=== PATIENT | female | born 1940 | race Caucasian/White ===

== ENCOUNTER 2024-06-15 12:23 | Inpatient (IN) | payer OTHER, SELFPAY ==
[2024-06-15] VITALS (9 sets, daily range): BP systolic 123–150; BP diastolic 68–85; BMI 20.7; BMI 19.7
[2024-06-15 09:06] LABS: COVID-19 Antigen Negative (Negative)
[2024-06-15 09:08] LABS: ALT (SGPT) 15 U/L (0-35); AST (SGOT) 23 U/L (14-36); Alkaline Phosphatase 70 U/L (38-126); Blood Urea Nitrogen 15 mg/dl (7-17); Calcium 10.8 mg/dl (8.4-10.2); Carbon Dioxide 24 mmol/L (22-30); Chloride 107 mmol/L (98-107); Estimated Creatinine Clearance 39 ml/min; Glucose 83 mg/dl (70-99); Potassium 4.5 mmol/L (3.5-5.1); Sodium 141 mmol/L (135-145); Total Bilirubin 0.7 mg/dl (0.2-1.3); Total Protein 7.3 g/dl (6.3-8.2); eGFR > 60.00
[2024-06-15 10:14] LABS: % Basophils 0.7 % (0-2); % Eosinophils 0.5 % (0-6); % Immature Granulocytes 2.2 % (0-0.5); % Lymphocytes 13.5 % (20.5-51.1); % Neutrophils 77.1 % (42.2-75.2); Absolute Basophils 0.1 10^3/uL (0-0.2); Absolute Eosinophils 0.1 10^3/uL (0-0.7); Absolute Immature Granulocytes 0.3 10^3/uL (0-0.05); Absolute Lymphocytes 2.1 10^3/uL (1.2-3.4); Absolute Monocytes 0.9 10^3/uL (0.1-0.6); Absolute Neutrophils 11.8 10^3/uL (1.4-6.5); Hematocrit 43.9 % (37.0-47.0); Hemoglobin 14.4 g/dL (12.0-16.0); Mean Corp Hgb Conc. 32.8 g/dL (33.0-37.0); Mean Corpuscular Volume 88.3 fL (81.0-99.0); Mean Platelet Volume 8.6 fL (7.4-10.4); Nucleated Red Blood Cells % 0 %; Platelet Count 502 10^3/uL (130-400); Red Blood Cell Count 4.97 10^6/uL (4.20-5.40); Red Cell Dist. Width 14.2 % (11.5-14.5); White Blood Cell Count 15.2 10^3/uL (4.8-10.8)
--- NOTE | 2024-06-15 10:20 | ED.GENMED ---
History of Present Illness
General
Chief Complaint: Breathing Problem
Source: patient and family (Son and [id number])
Time Seen by Provider: 06/15/24 09:56
History of Present Illness
History of Present Illness:
84-year-old female presents to the emergency room complaining of shortness of breath, increased cough and sputum production, shaking chills. Patient has a history of bronchiectasis. She is using nebulizers and was recently started on a tobramycin
breathing treatment. Patient has not been a dose time before but typically receives treatment at [facility]. They decided to 'go somewhere better'. No known fever. Patient's last hospitalization was about a year ago.
Phy Exam
Physical Exam
Physical Exam:
General: Awake, Alert, Oriented X3. Appears chronically ill but is not in acute respiratory distress
Vitals: Hypoxic on room air
Head: Atraumatic
Eyes: Pupils equal, EOMI
Throat: Airway intact, no exudates
Neck: Trachea midline
Lungs: Decreased breath sounds bilateral, few crackles bilateral bases
Heart: Regular rate, no murmurs
Abd: Soft, Nontender, No pulsatile mass
Neuro: Nonfocal
Skin: Warm, dry, no rash
Extremities: pulses equal b/l, no edema
Scores
Heart Failure Risk
Heart Failure Risk Score: Not Applicable
Course
Orders/Labs/Results
Orders:
Orders
06/15/24 08:27
Electrocardiogram (*1) Urgent
Reason for Study: Shortness of Breath
EKG- Treatment ONCE
CXR2 [CR Chest - 2 Views ] Urgent
Comment:
Reason For Exam: sob
06/15/24 08:40
COVID-19 Antigen Urgent
Source: Nasal Swab
Comprehensive Metabolic Panel Urgent
Influenza A+B Rapid Molecular Urgent
MARTHA Source: Nasal Swab
Specimen Description:
06/15/24 Lunch
Regular
At Your Request: Limited Participation
06/15/24 10:04
Complete Blood Count/With Diff Urgent
06/15/24 10:14
Ipratropium/Albuterol Sulfate [Duoneb] 3 ml INH R NOW STA
06/15/24 11:31
Piperacillin/Tazo 3.375 Gram [Zosyn] 3.375 gram in 50 ml IV NOW
06/15/24 11:38
Sputum Culture [Respiratory Culture/Gram Stain] Urgent
MARTHA Source: Sputum
Specimen Description:
Date Specimen was Collected: 06/15/24
Time Specimen was Collected: 11:13
06/15/24 12:00
Blood Culture Q30M
MARTHA Source: Blood/Venous
Specimen Description:
06/15/24 12:06
Admit/Transfer Patient As Directed
Co-Sign Provider:
Level of Care: Inpatient admission
Assign to:: Telemetry
Physician / Group: Brenda/hospitalist
Diagnosis: hypoxia, ?CAP
Reason for Telemetry: Arrhythmia
Date to Stop Telemetry: 06/18/24
Time to Stop Telemetry: 11:00
Reason for Hospitalization: hypoxia, ?CAP
Expected length of stay greater than two midnights?: Yes
ELOS- Estimated Length of Stay in days: 3
I certify the patient meets the requirements for IP care: Yes
PULMONARY CONSULT Routine
Consulting Provider: Collin Whipple
Was physician already notified: Yes
PRN Pain Medication Management As Directed
May give lesser potent ordered pain med per pt: Yes
preference::
Protocol:: Medication orders for pain may be administered in a
manner that supports deferring to patient preference
when the pt is:
- Requesting an ordered lesser potent pain medication.
Least to most potent pain medications are defined
as: acetaminophen < NSAID < tramadol < opioids
(morphine, oxycodone, hydromorphone).
- Requesting a lesser dose of the same medication IF
ORDERED.
- Requesting a less intrusive route of administration
if both routes are prescribed by the provider (PO <
IV).
06/15/24 12:07
Code Status As Directed
Resuscitation Status: Full Code
06/15/24 12:17
Respiratory Syncytial Virus Routine
MARTHA Source: Nasal Swab
Specimen Description:
Date Specimen was Collected: 06/15/24
Time Specimen was Collected: 12:08
06/15/24 12:30
Blood Culture Q30M
MARTHA Source: Blood/Venous
Specimen Description:
06/15/24 14:41
Bisacodyl [Dulcolax] 10 mg RECTAL [id number] PRN
Docusate W/Senna [Senokot-S] 1 tablet PO BIDPRN PRN
Ipratropium/Albuterol Sulfate [Duoneb] 3 ml INH R Q4HPRN PRN
Polyethylene Glycol Powder [Miralax] 17 grams PO DAILYPRN PRN
06/15/24 14:41
Activity As Directed
Activity Level: As Tolerated
Vital Signs As Directed
Frequency: Per unit guidelines
DX Deep Vein Thrombosis Video Routine
06/15/24 16:00
Ipratropium/Albuterol Sulfate [Duoneb] 3 ml INH R QID
06/15/24 16:17
Procalcitonin Routine
PCT Algorithmm Indication: Respiratory
06/15/24 16:18
MRSA Screen Routine
MARTHA Source: Nose
Specimen Description:
06/15/24 18:00
Enoxaparin Sodium [Lovenox] 40 mg SC QPM
Piperacillin/Tazo 3.375 Gram [Zosyn] 3.375 gram in 50 ml IV Q6H
06/16/24 06:00
Basic Metabolic Panel IN AM
Complete Blood Count/With Diff IN AM
Magnesium IN AM
06/18/24 11:00
DC Protocol for Telemetry ONCE
Abnormal Lab Results
06/15/24 06/15/24
08:40 10:04
WBC 15.2 H 10^3/uL
(4.8-10.8)
MCHC 32.8 L g/dL
(33.0-37.0)
Plt Count 502 H 10^3/uL
(130-400)
Abs Immat Gran (auto) 0.3 H 10^3/uL
(0-0.05)
Absolute Neuts (auto) 11.8 H 10^3/uL
(1.4-6.5)
Absolute Monos (auto) 0.9 H 10^3/uL
(0.1-0.6)
Immature Gran % 2.2 H %
(0-0.5)
Neutrophils % 77.1 H %
(42.2-75.2)
Lymphocytes % 13.5 L %
(20.5-51.1)
Calcium 10.8 H mg/dl
(8.4-10.2)
06/15/24 10:04
06/15/24 08:40
Vital Signs
Initial and Last Documented VS:
Initial Vital Signs
Temp Pulse Resp BP Pulse Ox
98.8 F 104 16 150/84 92
06/15/24 08:23 06/15/24 08:23 06/15/24 08:23 06/15/24 08:23 06/15/24 08:23
Last Documented Vital Signs
Temp Pulse Resp BP Pulse Ox
97.8 F 102 18 145/81 91
06/15/24 16:24 06/15/24 16:24 06/15/24 16:24 06/15/24 16:24 06/15/24 16:24
MDM/Problems Addressed
Differential Diagnosis Includes:
Pneumonia, bronchiectasis, acute bronchitis
MDM/Problems Addressed:
Patient presents with increasing shortness of breath, productive cough. She has a history of bronchiectasis. We do not have any records on this patient but she reports that she has a positive sputum culture for Pseudomonas in the past. Therefore
Zosyn ordered. Patient will require hospitalization given her comorbidities and acute decompensation
*Radiology
Radiology exam reviewed: preliminary read by ED provider (No distinct infiltrate)
*Pulse Oximetry
Patient hypoxic: yes
*EKG
Interpreted by ED Provider?: Yes
Interpretation: abnormal
Heart Rate: 103
Rate: tachycardiac
Rhythm: sinus tachycardia
Christoval: normal axis
Interval: normal interval
QRS Pattern: normal QRS
Ischemia: non-specific ST changes
*[employer] Interpretation
Rate: tachycardiac
Heart Rate: 103
Rhythm: sinus tachycardia
*Critical Care Note
Total Time (30-74mins, 75-104mins- exclusive of procedures): Not Applicable
ED Attending Note
-
Portions of this chart may have been created with voice recognition software.� Occasional wrong word or��sound alike� substitutions may have occurred due to the inherent limitations of voice recognition software.
Discharge Plan
Departure
Patient Disposition: Admit
Date of Disposition: 06/15/24
Time of Disposition: 11:32
Admit to: Med/Surg
Presentation/result/management discussed w/ accepting MD/DO: Hospitalist
Discharge Problem:
Acute exacerbation of bronchiectasis, Hypoxia
Interventions
Interventions:
*Risk Screen - Suicide Last Done: 06/15/24 08:23
*General Assessment Last Done: 06/15/24 09:04
*Neglect/Abuse Screening Last Done: 06/15/24 08:23
ED- Fall Risk Assessment Last Done: 06/15/24 09:04
*ED COVID-19 Vaccine History Last Done: 06/15/24 09:04
*Nursing Disposition Last Done: 06/15/24 14:34
ED- Cardiac Assessment Last Done: 06/15/24 09:04
ED- Pulmonary Assessment Last Done: 06/15/24 09:04
Discharge Date and Time
Discharge Date/Time: 06/15/24 14:35
[2024-06-15] MEDS: DUONEB 3 ML INH ×2 (10:25→21:44)
[2024-06-15] MEDS: ZOSYN 50 IV (11:35)
--- NOTE | 2024-06-15 11:47 | HPS.HSE ---
Family Physician
-
Family Physician: Serge Agarwal
Chief Complaint
-
SOB, cough
History of Present Illness
HPI: 84-year-old female with PMH bronchiectasis; p/w shortness of breath, increased cough and sputum production, shaking/chills and hypoxia.
She was using nebulizers and was recently started on tobramycin breathing treatment.
This is her first time at , she usually goes to [facility]. Patient's last hospitalization was about a year ago.
Denies to other symptoms.
Medical History
Past Medical History
Past Medical History: Reports Other
Additional Past Medical History:
bronchiectasis
Past Surgical History: Reports None
Social History
Tobacco: Non-smoker
Alcohol: None
Living: Prison
Family History
Family History: Not pertinent
Allergies / Home Medications
Allergies reflects when Allergies were last updated in [facility].
Home Medications with original date entered in [facility]
Allergy/Medication List:
Medications on admission are unable to be verified or confirmed at this time.
Review of Systems
-
Respiratory: Reports See HPI and Cough
Physical Exam
Vital Signs
Vital Signs
Temp Pulse Resp BP Pulse Ox
37.1 C 111 22 129/85 95
06/15/24 08:23 06/15/24 11:00 06/15/24 11:00 06/15/24 11:00 06/15/24 11:00
Physical Exam
General: Well Developed, Well Nourished, No Apparent Distress, Comfortable and Conversant
HEENT: NormoCephalic, Moist mucous membranes and Atraumatic
Respiratory: Clear and Non Labored Respirations; No Wheezes or Accessory Resp Muscle Use
Cardiac: S1/S2 and Regular Rhythm; No Murmur or Rub
GI: Soft, Non Tender, Non Distended and Normal Bowel Sounds; No Organomegaly
Rectal: Deferred by Provider
Musculoskeletal: No Clubbing, No Cyanosis and No Edema
Skin: No Rash
Neuro: Awake and Alert
Psych: Intact Judgment/Insight
Laboratory Results
-
06/15/24 10:04
06/15/24 08:40
Laboratory Results
Total Bilirubin 0.7 mg/dl (0.2-1.3) 06/15/24 08:40
AST 23 U/L (14-36) 06/15/24 08:40
ALT 15 U/L (0-35) 06/15/24 08:40
Alkaline Phosphatase 70 U/L (38-126) 06/15/24 08:40
Data Reviewed
-
Diagnostic Radiology: Image Personally Visualized and interpreted and Report Reviewed by me
Lab Data: Labs Reviewed by me
Impression/Plan
-
HPI: 84-year-old female with PMH bronchiectasis; p/w shortness of breath, increased cough and sputum production, shaking/chills and hypoxia.
She was using nebulizers and was recently started on tobramycin breathing treatment.
This is her first time at , she usually goes to [facility]. Patient's last hospitalization was about a year ago.
Denies to other symptoms.
A/P:
# Likely sepsis present on admission, secondary to community-acquired pneumonia
# Acute hypoxic respiratory insufficiency
# History of bronchiectasis
Patient placed on 2L NC, wean as tolerated, patient not on home O2
CXR: suspect acute on chronic bibasilar infectious/inflammatory bronchiolitis. Cannot rule out component of underlying chronic interstitial lung disease.
Check procalcitonin
Check blood culture
Check RSV, MRSA screen
Flu/COVID-negative
Status post Zosyn in ER, continue
ID consult
DVT ppx: Lovenox SQ
FC
--- NOTE | 2024-06-15 13:07 | CON.PUL ---
Consultation
Consultation Request
Date/Time Consultation Requested: 06/15/2024 - 120
Date/Time Consultation Performed: 06/15/2024 - 0
Requesting Provider: Dr. Gutierrez
Performing Provider: Dr. Whipple
Reason for Consultation: SOB/cough/history of bronchiectasis
Medical History
-
Chief Complaint: Shortness of breath/cough/fevers
History of Present Illness:
84-year-old female non-smoker with a reported past medical history of bronchiectasis/chronic bronchitis who presents with shortness of breath and worsening cough. She says that she woke up with difficulty breathing and this worsened with activity.
Also having shaking chills with worsening sputum production. She reports that she was recently started on tobramycin nebulizers for history of Pseudomonas on sputum culture. She usually goes to [facility]. On arrival here to the ER
she was saturating 92% on RA, she was afebrile to 98.8 �F, pulse rate 104, breathing at 16 breaths/min, and BP 150/84. Of note, she does not use home oxygen. Labs showed WBC 15.2, Hb 14.4, platelets 502, calcium 10.8, and COVID-19 antigen
negative. Flu A/B swab is negative and sputum culture collected. RSV swab also negative. CXR shows a suspected acute on chronic bibasilar infectious/inflammatory bronchiolitis. Cannot rule out underlying ILD. She was given Zosyn and DuoNebs in
the ER and admitted to telemetry under the hospitalist. Pulmonary service now consulted for additional management/recommendations.
When I saw the patient she was resting in bed, on 2 L/min, breathing comfortably, saying she feels better. She says her bronchiectasis was diagnosed 14 years ago after she had a cold and then had significant cough or shortness of breath. She
follows with [employer] team member, Dr. Chandan Fletcher with [facility]. She has been on tobramycin nebs in 2 weeks cycles for several months due to a history of Pseudomonas. Has also been on chronic prednisone taken 20 mg every other day also for
several months, and she took her last pill yesterday. She usually takes Arnuity 200mcg + Anoro for her bronchiectasis, and she believes she has a history of COPD. Also takes prn albuterol, and a budesonide sinus rinse. She denies having recurrent
infections or having a history of immunoglobulin deficiency. She may feel short of breath randomly during the day and that is when she takes her albuterol. She denies any recent sick contacts, no fevers prior to admission, and no recent travel.
This morning she felt lightheaded and short of breath and that is what led her to coming into the hospital.
PMHx: Reported history of bronchiectasis/COPD, history of bronchiolitis/chronic bronchitis
PSHx: Appendectomy, ear surgery
Past Medical History
Past Medical History: Other (Above as per HPI)
Past Surgical History: Other (Above as per HPI)
Social History
Tobacco: Non-smoker
Alcohol: None
Drug: None
Living: Shelter
Family History
Family History: Reviewed & Not Pertinent
Allergies / Home Medications
Allergies
Allergy/AdvReac Type Severity Reaction Status Date / Time
peanut Allergy Unknown Verified 06/15/24 08:26
Home Medications
�Medication �Instructions �Recorded �Confirmed �Last Taken �Type
albuterol sulfate 2.5 mg/3 mL 2.5 mg inhalation R Q6HPRN PRN sob 06/15/24 06/15/24 Unknown History
(0.083 %) solution for nebulization
aspirin 81 mg tablet,delayed 81 mg PO DAILY 06/15/24 06/15/24 06/14/24 History
release
budesonide 0.5 mg/2 mL suspension 0.5 mg inhalation R BID 06/15/24 06/15/24 06/14/24 History
for nebulization
calcium 500 mg (as 1 tab PO DAILY 06/15/24 06/15/24 06/14/24 History
carbonate)-vitamin D3 10 mcg (400
unit) tablet (Calcium 500 + D)
fenofibrate nanocrystallized 145 145 mg PO DAILY 06/15/24 06/15/24 06/14/24 History
mg tablet (Tricor)
fluticasone furoate 200 1 inh inhalation R DAILY 06/15/24 06/15/24 06/14/24 History
mcg/actuation blister powder for
inhalation (Arnuity Ellipta)
hydrochlorothiazide 25 mg tablet 25 mg PO DAILY 06/15/24 06/15/24 06/14/24 History
pantoprazole 40 mg tablet,delayed 40 mg PO DAILY 06/15/24 06/15/24 06/14/24 History
release (Protonix)
tobramycin 300 mg/5 mL in 0.225 % 5 ml inhalation UD 06/15/24 06/15/24 06/15/24 History
sodium chloride for nebulization
umeclidinium 62.5 mcg-vilanterol 1 inh inhalation R DAILY 06/15/24 06/15/24 06/14/24 History
25 mcg/actuation powdr for
inhalation (Anoro Ellipta)
Review of Systems
-
History Source: Patient
All other systems: Negative unless noted
Vitals / Labs / Diagnostic Testing
Vital Signs
Temp Pulse Resp BP Pulse Ox
98.8 F 99 25 124/68 96
06/15/24 08:23 06/15/24 13:15 06/15/24 13:00 06/15/24 13:00 06/15/24 13:15
Lab Data
06/15/24 10:04
06/15/24 08:40
Microbiology
06/15/24 11:38 Sputum Gram Stain - Preliminary
06/15/24 12:17 Nasal Swab Respiratory Syncytial Virus Ag - Final
Negative for Respiratory Syncytial Virus.
A false negative result may be obtained with a specimen
collected early in the acute phase. If symptoms persist, a
new specimen should be tested.
06/15/24 08:40 Nasal Swab Influenza Types A & B (ARNAUD) - Final
Negative for Influenza A & B, NAAT
Negative results must be combined with clinical observations
and patient history.
Nucleic Acid Amplification test (NAAT)performed on the
Met[employer] NOW platform.
Diagnostic Testing:
Physical Exam
-
HEENT: Normocephalic and Anicteric
Cardiovascular: S1/S2 and Peripheral Edema (negative)
Respiratory: Wheeze (Bergen upon expiration in the mid to upper lung mcpherson bilaterally), Rales (Bibasilar), Rhonchi (negative) and Non-Labored Respirations
GI: Soft, Non Distended, Non Tender and Normal Bowel Sounds
Neurology: AO x 3 and Tremors (negative)
Skin: Warm and Dry
General: Respiratory Distress (negative), Comfortable, Fever (negative) and Chills (negative)
Assessment
-
Assessment: 84-year-old female non-smoker with a reported past medical history of bronchiectasis/chronic bronchitis who presents with shortness of breath and worsening cough. She says that she woke up with difficulty breathing and this worsened
with activity. Also having shaking chills with worsening sputum production. She reports that she was recently started on tobramycin nebulizers for history of Pseudomonas on sputum culture. She usually goes to [facility]. On arrival
here to the ER she was saturating 92% on RA, she was afebrile to 98.8 �F, pulse rate 104, breathing at 16 breaths/min, and BP 150/84. Of note, she does not use home oxygen. Labs showed WBC 15.2, Hb 14.4, platelets 502, calcium 10.8, and COVID-19
antigen negative. Flu A/B swab is negative and sputum culture collected. RSV swab also negative. CXR shows a suspected acute on chronic bibasilar infectious/inflammatory bronchiolitis. Cannot rule out underlying ILD. She was given Zosyn and
DuoNebs in the ER and admitted to telemetry under the hospitalist. Pulmonary service now consulted for additional management/recommendations.
Chronic conditions [employer]: Reported history of bronchiectasis/COPD, history of bronchiolitis/chronic bronchitis, history of chronic prednisone use, history of Pseudomonas aeruginosa requiring chronic tobramycin nebs
Impression:
#Acute respiratory failure with hypoxia not on supplemental oxygen
#COPD exacerbation
#History of bronchiectasis/COPD on Anoro/Arnuity and history of chronic prednisone use (prescribed 20mg every other day for several months, stopped yesterday)
#SOB with worsening cough and sputum production which shaking chills likely due to sepsis from CAP
#History of Pseudomonas on sputum culture (per patient) on tobramycin nebs in 2 weeks cycles for a few months
#Leukocytosis, possibly related to recent prednisone usage prior to arrival
#Thrombocytosis likely reactive
#Hypercalcemia
Plan:
- Continue with broad-spectrum antibiotics (cefepime s/p zosyn) as CXR showed bibasilar interstitial/airspace opacities with suspected pneumonia vs inflammatory bronchiolitis
- Takes Anoro and Arnuity at home --> given her SOB, continue DuoNebs and Pulmicort for now; can resume her inhalers as she gets closer to discharge; continue prn nebulized bronchodilators for breakthrough symptoms
- Given that she is wheezing and has felt marked improvement in past when she takes steroids, I will start a prednisone taper
- Anti-tussants prn
- Airway clearance is ricketts--> start mucinex and acapella; if still having SOB with cough, then will start 3% with vest
- Follow up respiratory Cx
- Check procal and if negative then consider narrowing ABx or giving short course; if procal elevated then would trend to assure we have source control
- Follow up sputum Cx
- Currently I have no prior CT imaging or breathing tests to assess the severity of her bronchiectasis or assess for COPD
- If we can obtain medical records of most recent CT chest and/or any prior PFTs that would be helpful - her lung doctor is Dr. Fletcher at [facility] - I will request this
- She currently is on room air and breathing comfortably, however if dyspnea on exertion does not improve then would recommend CT chest to evaluate the lung parenchyma
- Maintain SpO2 88-95% with supplemental O2 and wean down as tolerated
- If resting SaO2 remains <96% on room air, then check ambulatory pulse oximetry prior to discharge
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 Unfortunately we do not carry this here. I will order [place] for now
- Continue to trend calcium level
- Consider checking PTH and 25-OH Vitamin D level
- Incentive spirometer encouraged q1hr while awake
- Replete electrolytes with K>4, Mg>2
- Trend H/H and transfuse if needed to keep Hb>7g/dL; keep plt>20k, unless there is concern for bleeding then keep plt>50k
- Maintain euglycemia with goal BG >100 and <180
- DVT ppx: LMWH
Pulmonary service will continue to follow along. Following discharge she is recommended to continue following with her Telephone Appointment Clerk at [facility], Dr. Chandan Fletcher.
Data:
CXR 06/15/2024: Suspect acute on chronic bibasilar infectious/inflammatory bronchiolitis. Cannot rule out component of underlying chronic interstitial lung disease.
Total time spent today was 57 minutes for this encounter. Time includes reviewing laboratory test/imaging results, reviewing pertinent medical records, obtaining and reviewing medical history, performing an appropriate exam, ordering medications,
tests and procedures. Time also includes documentation of this encounter, coordinating patient care and communicating with other healthcare professionals. Total time does not include separately billed tests performed on this date of service.
[2024-06-15] MEDS: DUONEB INH ×2 (15:28→15:36)
--- NOTE | 2024-06-15 16:05 | CON.ID ---
Consultation
-
Date/Time Consultation Requested: June 15, 2024 1600
Date/Time Consultation Performed: June 15, 2024 1600
Requesting Provider: Dr. Rosi Gutierrez
Performing Provider: Dr. Cheryl Marques
Reason for Consultation: Pseudomonas pneumonia with hypoxia
Chief Complaint / Past History
Chief Complaint
Difficulty breathing
History of Present Illness
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 She reports she has
bronchiectasis x 14 years. She had bronchoscopy in the past. Her sputum always grew Pseudomonas. She has frequent bronchiectasis flare often treated with steroid taper alone. Approximately 2 months ago she was placed on HEATHER 14 days on, 14 days
off cycle, along with slow steroid taper which she finished yesterday June 14. She was doing well the last couple months while on the HEATHER and steroid. She has chronic cough productive of yellowish sputum without change. Patient noted to be
hypoxic. She was last hospitalized in [place] July 2023 when she had a reaction to one of the antibiotic with significant GI upset, diarrhea and dizziness. She cannot recall which antibiotic she received. She is currently on Zosyn. She still
has shortness of breath. No ill contacts.
Past History
Additional Past Medical History:
Bronchiectasis
Allergy History:
peanut Allergy (Verified 06/15/24 08:26)
Unknown
Medications Reviewed: Yes
Current Antibiotics:
Zosyn D1
Social History
Tobacco: Non-Smoker
Alcohol: None
Drug: None
Living: Alone ([facility])
Family History
Family History: Not Pertinent
Review of Systems
Review of Systems
General: Chills; Negative Fever
HEENT: Negative Sinus Problems, Headache or Pharyngitis
Cardiovascular: Negative Chest Pain
Respiratory: Dyspnea and Cough (chronic)
Gasteroenterology: Negative Nausea, Vomiting or Diarrhea
Genital / Urological: Negative Dysuria or Flank Pain
Endocrine: Weakness
Neurological: Negative Dizziness
All systems: All other systems were reviewed and were negative
Vital Signs
Temp Pulse Resp BP Pulse Ox
98.8 F 95 32 132/75 93
06/15/24 08:23 06/15/24 14:00 06/15/24 14:00 06/15/24 14:00 06/15/24 15:37
Physical Exam
Physical Exam
Eyes: No Conjunctival Hemorrhage and Sclera Anicteric
Cardiovascular: Regular Rate and S1/S2
Pulmonary: Coarse (bibase crackles) and Other (Labored. decreased airway movement)
Gastrointestinal: Soft, Non Tender, Non Distended and Normal Bowel Sounds
Genito-Urinary: Negative CVA Tenderness
Extremities: Negative Edema
Neurological: AO x 3
Lab / Diagnostic Study Results
06/15/24 10:04
06/15/24 08:40
Abs Immat Gran (auto) 0.3 10^3/uL (0-0.05) H 06/15/24 10:04
Absolute Neuts (auto) 11.8 10^3/uL (1.4-6.5) H 06/15/24 10:04
Absolute Lymphs (auto) 2.1 10^3/uL (1.2-3.4) 06/15/24 10:04
Absolute Monos (auto) 0.9 10^3/uL (0.1-0.6) H 06/15/24 10:04
Absolute Basos (auto) 0.1 10^3/uL (0-0.2) 06/15/24 10:04
Immature Gran % 2.2 % (0-0.5) H 06/15/24 10:04
Neutrophils % 77.1 % (42.2-75.2) H 06/15/24 10:04
Lymphocytes % 13.5 % (20.5-51.1) L 06/15/24 10:04
Monocytes % 6.0 % (1.7-9.3) 06/15/24 10:04
Eosinophils % 0.5 % (0-6) 06/15/24 10:04
Basophils % 0.7 % (0-2) 06/15/24 10:04
Microbiology Results
Micro:
06/15/24 11:38 Respiratory Culture - Pending
Sputum Gram Stain - Preliminary
06/15/24 12:17 Respiratory Syncytial Virus Ag - Final
Nasal Swab Negative for Respiratory Syncytial Virus.
A false negative result may be obtained with a specimen
collected early in the acute phase. If symptoms persist, a
new specimen should be tested.
06/15/24 08:40 Influenza Types A & B (ARNAUD) - Final
Nasal Swab Negative for Influenza A & B, NAAT
Negative results must be combined with clinical observations
and patient history.
Nucleic Acid Amplification test (NAAT)performed on the
[employer] platform.
06/15/24 CXR: Suspect acute on chronic bibasilar infectious/inflammatory bronchiolitis.
12/03/2023 Sputum ([facility])
Lower Respiratory Culture Final report Abnormal
Result 1 Pseudomonas aeruginosaModerate growth Abnormal
Result 2 Routine respiratory floraModerate growth
Antimicrobial Susceptibility S = Susceptible; I = Intermediate; R = Resistant P = Positive; N = Negative
MICS are expressed in micrograms per mL
Antibiotic RSLT#1 RSLT#2 RSLT#3 RSLT#4
Amikacin S
Cefepime S
Ceftazidime S
Gentamicin S
Imipenem S
Levofloxacin I
Meropenem S
Piperacillin S
Ticarcillin S
Tobramycin S
Assessment / Plan
# Bronchiectasis exacerbation
# Pneumonia vs Acute on chronic Bronchitis
# Acute hypoxic insufficiency
# Leukocytosis - may be due to recent steroid taper
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
- Patient new to our health system. No imaging to compare to look for acute change.
- Review of [facility] and [facility] labs: Sputums + Pseudomonas aeruginosa 10/22/23 (pansensitive), 11/16/23 (pansensitive), 12/03/23 (intermediate resistant to levofloxacin).
- Follow sputum cx
- Replace Zosyn with cefepime 1g IV q6h.
- Obtain records from 07/2023 [facility].
Care Review
Plan reviewed with: Physician
Total Time Spent with Patient (in minutes): Dr. Whipple
[2024-06-15] MEDS: LOVENOX 40 MG SC (17:22)
[2024-06-15] MEDS: MAXIPIME 1000 MG IV ×2 (17:23→23:19)
[2024-06-15] MEDS: STERILE WATER FOR INJECTION 10 ML IV ×2 (17:23→23:20)
[2024-06-15] MEDS: DELTASONE 40 MG PO (18:03)
[2024-06-15] MEDS: OCEAN, SALINE MIST NASAL ×2 (20:27→20:41)
[2024-06-15] MEDS: OCEAN, SALINE MIST 2 SPRAYS NASAL (21:21)
[2024-06-15] MEDS: PULMICORT 0.5 MG INH (21:44)
[2024-06-15 21:48] LABS: Procalcitonin < 0.05 ng/ml (0.0-0.25)
[2024-06-16] VITALS (9 sets, daily range): BP systolic 120–163; BP diastolic 63–92; PULSE 120; O2SAT 95; BMI 18.9
[2024-06-16] MEDS: STERILE WATER FOR INJECTION 10 ML IV ×3 (05:09→18:43)
[2024-06-16] MEDS: MAXIPIME 1000 MG IV ×3 (05:09→18:43)
[2024-06-16] MEDS: PULMICORT 0.5 MG INH ×2 (07:12→19:15)
[2024-06-16] MEDS: DUONEB 3 ML INH ×4 (07:12→19:15)
[2024-06-16 07:40] LABS: % Basophils 0.3 % (0-2); % Immature Granulocytes 2.1 % (0-0.5); % Lymphocytes 11.1 % (20.5-51.1); % Neutrophils 82.5 % (42.2-75.2); Absolute Immature Granulocytes 0.3 10^3/uL (0-0.05); Absolute Lymphocytes 1.5 10^3/uL (1.2-3.4); Absolute Monocytes 0.6 10^3/uL (0.1-0.6); Absolute Neutrophils 11.3 10^3/uL (1.4-6.5); Hemoglobin 14.6 g/dL (12.0-16.0); Mean Corp Hgb Conc. 32.4 g/dL (33.0-37.0); Mean Corpuscular Hgb 28.3 pg (27.0-31.0); Mean Corpuscular Volume 87.2 fL (81.0-99.0); Mean Platelet Volume 8.5 fL (7.4-10.4); Nucleated Red Blood Cells % 0 %; Platelet Count 515 10^3/uL (130-400); Red Blood Cell Count 5.16 10^6/uL (4.20-5.40); White Blood Cell Count 13.7 10^3/uL (4.8-10.8)
--- NOTE | 2024-06-16 08:11 | W.PN.HOSP.TC ---
Addendum entered and electronically signed by Kaitlin Gutierrez MD 06/16/24 12:39:
I saw and evaluated the patient. I reviewed the resident�s note and agree with findings and plan as documented in the resident�s note.
A/P:
# Acute hypoxic respiratory insufficiency, now felt likely 2/2 progression of chronic bronchiectasis
# History of bronchiectasis
Cont O2 support on 2L NC, wean as tolerated, patient not on home O2
CXR: suspect acute on chronic bibasilar infectious/inflammatory bronchiolitis. Cannot rule out component of underlying chronic interstitial lung disease.
Procalcitonin negative, COVID/Flu/RSV negative
Sputum culture noted Usual Respiratory Felicia
Follow blood culture
Pt was started with empiric Abx Cefepime, cont for now until further directed by ID
DC further empiric steroid due to agitation
ID on board
Pulm on board
DVT ppx: Lovenox SQ
FC
Original Note:
Today's Communication/Plan
-
Hold PO steroids for now for agitation. C/w mucolytics, nebulizers, inhalers. Pending sputum cultures and blood cultures. Will restart home HCTZ.
Assessment / Plan
Assessment / Plan
84 year old female
#Acute hypoxic respiratory failure, possibly secondary to infectious bronchiolitis - Requiring supplemental Oxygen 2L NC w/o hx of oxygen use at home.
- c/w mucinex, antitussives, duonebs/pulmicort w/ albuterol nebs prn.
- Holding steroids for now as patient reports sx of difficulty sleeping, agitation, appetite loss while taking high dose steroids. Will monitor symptoms & wean Oxygen as tolerated.
#Possible Sepsis, secondary to infectious bronchiolitis - On admission, tachycardic, leukocytosis, CXR showing findings suspicious for acute on chronic bibasilar infectious/inflammatory bronchiolitis. Procalcitonin negative. COVID/RSV/Flu negative.
MRSA and Blood Cx pending. On cefepime. ID Following.
#COPD
#History of Bronchiectasis w/ pseudomonas colonization
- mucolytics, antitussives, inhalers/nebs as above.
- Pulm Following.
#Hypertension - pressures elevated in hospital; will restart home HCTZ, hold for SBP <100mHg
Diet - Full
DVT Ppx - SC Lovenox
Code Status - Full Code
Anticipated Discharge: 24 - 48 hours
Subjective/Interval History
-
Shortness of breath improved. had trouble sleeping last night; says this happens when she takes steroids.
Objective Data
-
Labs:
Laboratory Results
06/16/24
07:13
WBC 13.7 H
Hgb 14.6
Hct 45.0
Plt Count 515 H
Sodium Pending
Potassium Pending
Chloride Pending
Carbon Dioxide Pending
BUN Pending
Creatinine Pending
Glucose Pending
Calcium Pending
Vital Signs:
Vital Signs
Temp Pulse Resp BP Pulse Ox
97.7 F 98 18 153/92 96
06/16/24 04:01 06/16/24 07:15 06/16/24 07:15 06/16/24 05:48 06/16/24 05:48
I&O
06/15/24 06/16/24 06/17/24
06:59 06:59 06:59
Intake Total 240 / 240
Balance 240 / 240
Review of Systems
-
History Source: Patient
All other systems: Reviewed and negative
Constitutional: Reports No Symptoms
EENT: Reports No Symptoms Reported
Respiratory: Reports Cough and Trouble Breathing; Denies Wheezing
Cardiac: Reports No Symptoms
Abdomen/GI: Reports No Symptoms
Genitourinary: Reports No Symptoms
Musculoskeletal: Reports No Symptoms
Neuro: Reports No Symptoms
Physical Exam
-
General: Well Developed, Well Nourished, No Apparent Distress and Comfortable
HEENT: Normocephalic, Atraumatic, Moist Mucous Membranes, Anicteric, [place] Conjunctivae, PERRLA, Nose Appears Normal, Ears Appear Normal and Oxygen (2L NC)
Respiratory: Rhonchi and Non Labored Respirations; Negative Wheezes or Rales
Cardiac: Regular Rhythm and S1/S2; Negative Murmur or Rub
GI: Soft, Nontender, Nondistended and Normal Bowel Sounds
Musculoskeletal: No Clubbing, No Cyanosis and No Edema
Neuro: AO x 3 and Nonfocal/Grossly Intact
Psych: Calm
[2024-06-16 08:12] LABS: Blood Urea Nitrogen 16 mg/dl (7-17); Calcium 10.8 mg/dl (8.4-10.2); Carbon Dioxide 22 mmol/L (22-30); Chloride 104 mmol/L (98-107); Estimated Creatinine Clearance 39 ml/min; Glucose 127 mg/dl (70-99); Phosphorus 3.5 mg/dl (2.5-4.5); Potassium 4.5 mmol/L (3.5-5.1); Sodium 139 mmol/L (135-145); eGFR > 60.00
[2024-06-16] MEDS: OCEAN, SALINE MIST 2 SPRAYS NASAL ×3 (09:06→20:57)
[2024-06-16] MEDS: DELTASONE 40 MG PO (09:06)
--- NOTE | 2024-06-16 10:39 | CM ---
CM reviewed chart, patient seen bedside with son and daughter in law, initial assessment completed. Patient resides independently at [facility]. Patient denies use of DME, reports VN in past, unsure of company, denies SNF. Patient
currently on O2, does not wear home O2. Patient PCP Serge Fajardo, [facility] in [place], confirms prescription coverage. Patient remains on IV antibiotics. PT/OT consulted. CM will continue to follow for all discharge planning needs.
Plan; home, watch for VN needs, watch for O2 needs.
--- NOTE | 2024-06-16 12:33 | W.PN.ID1 ---
Date of Service
Date of Service: June 16, 2024
Today's Communication
Continiue cefepime.
Assessment / Plan
# Bronchiectasis exacerbation
# Acute on chronic Bronchitis; procal <0.25
# Acute hypoxic insufficiency
# Leukocytosis - may be due to recent steroid taper
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
- Patient new to our health system. No imaging to compare to look for acute change.
- Review of [facility] and [facility] labs: Sputums + Pseudomonas aeruginosa 10/22/23 (pansensitive), 11/16/23 (pansensitive), 12/03/23 (intermediate resistant to levofloxacin).
- Follow sputum cx
- Continue cefepime 1g IV q6h (d2)
- Awaiting records from 07/2023 [facility].
- Follow oxygen status
Chief Complaint
-: Other (SOB)
Subjective / Review of Systems
SOB same.
Vital Signs / Physical Exam
Vital Signs
Vital Signs
Temp Pulse Resp BP Pulse Ox
97.4 F 106 18 163/63 93
06/16/24 07:40 06/16/24 11:10 06/16/24 11:10 06/16/24 07:40 06/16/24 11:10
Physical Exam
Constitutional: Acutely Ill
Cardiovascular: Regular Rate and S1/S2
Pulmonary: Coarse (bases)
Gastrointestinal: Soft, Non Tender, Non Distended and Normal Bowel Sounds
Extremities: Negative Edema
Neurological: AO x 3
Objective Data
Lab Data
Lab Results
06/16/24 07:13
06/16/24 07:13
Estimated Creat Clear 39 ml/min 06/16/24 07:13
Total Bilirubin 0.7 mg/dl (0.2-1.3) 06/15/24 08:40
AST 23 U/L (14-36) 06/15/24 08:40
ALT 15 U/L (0-35) 06/15/24 08:40
Alkaline Phosphatase 70 U/L (38-126) 06/15/24 08:40
Most recent labs reviewed.
Micro Results:
06/15/24 11:38 Respiratory Culture - Preliminary
Sputum Usual Respiratory Felicia
Gram Stain - Preliminary
06/15/24 21:09 Blood Culture - Pending
Blood/Venous
06/15/24 19:56 Blood Culture - Pending
Blood/Venous
06/15/24 16:18 MRSA Screen - Pending
Nose
06/15/24 12:17 Respiratory Syncytial Virus Ag - Final
Nasal Swab Negative for Respiratory Syncytial Virus.
A false negative result may be obtained with a specimen
collected early in the acute phase. If symptoms persist, a
new specimen should be tested.
06/15/24 08:40 Influenza Types A & B (ARNAUD) - Final
Nasal Swab Negative for Influenza A & B, NAAT
Negative results must be combined with clinical observations
and patient history.
Nucleic Acid Amplification test (NAAT)performed on the
[employer] platform.
06/15/24 CXR: Suspect acute on chronic bibasilar infectious/inflammatory bronchiolitis.
12/03/2023 Sputum ([facility])
Lower Respiratory Culture Final report Abnormal
Result 1 Pseudomonas aeruginosaModerate growth Abnormal
Result 2 Routine respiratory floraModerate growth
Antimicrobial Susceptibility S = Susceptible; I = Intermediate; R = Resistant P = Positive; N = Negative
MICS are expressed in micrograms per mL
Antibiotic RSLT#1 RSLT#2 RSLT#3 RSLT#4
Amikacin S
Cefepime S
Ceftazidime S
Gentamicin S
Imipenem S
Levofloxacin I
Meropenem S
Piperacillin S
Ticarcillin S
Tobramycin S
[2024-06-16] MEDS: ORETIC 25 MG PO (12:41)
--- NOTE | 2024-06-16 13:04 | W.PN.PUL3 ---
Today's Communication / Plan
-
Continue nebulizer
cont. Secretion clearance interventions
prednisone DC 06/16/2024 adverse effects
Cont. ABX per ID, wait for final cultures
PT/OT as able.
Hypercalcemia per primary team
Will follow
Assessment
-
Assessment: 84-year-old female non-smoker with a reported past medical history of bronchiectasis/chronic bronchitis who presents with shortness of breath and worsening cough. She says that she woke up with difficulty breathing and this worsened
with activity. Also having shaking chills with worsening sputum production. She reports that she was recently started on tobramycin nebulizers for history of Pseudomonas on sputum culture. She usually [facility]. On arrival
here to the ER she was saturating 92% on RA, she was afebrile to 98.8 �F, pulse rate 104, breathing at 16 breaths/min, and BP 150/84. Of note, she does not use home oxygen. Labs showed WBC 15.2, Hb 14.4, platelets 502, calcium 10.8, and COVID-19
antigen negative. Flu A/B swab is negative and sputum culture collected. RSV swab also negative. CXR shows a suspected acute on chronic bibasilar infectious/inflammatory bronchiolitis. Cannot rule out underlying ILD. She was given Zosyn and
DuoNebs in the ER and admitted to telemetry under the hospitalist. Pulmonary service now consulted for additional management/recommendations.
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
Impression:
#Acute respiratory failure with hypoxia not on supplemental oxygen
#COPD exacerbation
#History of bronchiectasis/COPD on Anoro/Arnuity and history of chronic prednisone use (prescribed 20mg every other day for several months, stopped yesterday)
#SOB with worsening cough and sputum production which shaking chills likely due to sepsis from CAP
#History of Pseudomonas on sputum culture (per patient) on tobramycin nebs in 2 weeks cycles for a few months
#Leukocytosis, possibly related to recent prednisone usage prior to arrival
#Thrombocytosis likely reactive
#Hypercalcemia
Plan:
- Continue with broad-spectrum antibiotics (cefepime s/p zosyn) as CXR showed bibasilar interstitial/airspace opacities with suspected pneumonia vs inflammatory bronchiolitis
- Takes Anoro and Arnuity at home --> given her SOB, continue DuoNebs and Pulmicort for now; can resume her inhalers as she gets closer to discharge; continue prn nebulized bronchodilators for breakthrough symptoms
- Prednisone DC- 06/16/2024 due to adverse effects.
- Anti-tussants prn
- Airway clearance is ricketts--> continue mucinex and acapella; if still having SOB with cough, then will start 3% with vest
- Incentive spirometer encouraged q1hr while awake
- Follow up respiratory Cx- negative so far- follow for now.
- Covid/flu negative.
- afebrile/leukocytosis improved, procalcitonin negative.
- Defer ABX to ID, cultures from outpx noted, mostly pansensitive pseudomonas.
- Currently I have no prior CT imaging or breathing tests to assess the severity of her bronchiectasis or assess for COPD
- If we can obtain medical records of most recent CT chest and/or any prior PFTs that would be helpful - her lung doctor is Dr. Fletcher at [facility] - Requested and pending.
- She currently is on room air and breathing comfortably, however if dyspnea on exertion does not improve then would recommend CT chest to evaluate the lung parenchyma.
- Maintain SpO2 88-95% with supplemental O2 and wean down as tolerated- on 3L, new for her.
- If resting SaO2 remains <96% on room air, then check ambulatory pulse oximetry prior to discharge
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 Unfortunately we do not carry this here. I will order [employer] [place] for now
-Wt loss- pt states that she has lost 20-30lb since November- lack of appetite. ?pulmonary Cachexia
consulted PT?OT,
muscle mass loss can also be contributing to her symptoms.
- DVT ppx: LMWH
Pulmonary service will continue to follow along. Following discharge she is recommended to continue following with her [employer] at [facility], Dr. Chandan Fletcher.
Data:
CXR 06/15/2024: Suspect acute on chronic bibasilar infectious/inflammatory bronchiolitis. Cannot rule out component of underlying chronic interstitial lung disease.
Subjective Data
-
Date of Service:
Date of Service: June 16, 2024
Chief Complaint: Pulmonary Follow Up (Hypoxemic respiratory failure/COPD exacerbation)
Review of Systems
General: Fever (n)
Cardiopulmonary: Dyspnea, Dyspnea on Exertion and Cough
GI: Abdominal Pain (n)
Neuro: Headache (n)
Objective Data
Data Reviewed
Vital Signs / I&O / Oxygen:
Vital Signs
Temp Pulse Resp BP Pulse Ox
97.3 F 115 18 134/69 93
06/16/24 11:00 06/16/24 12:41 06/16/24 11:10 06/16/24 12:41 06/16/24 11:10
Intake and Output
06/15/24 06/16/24 06/17/24
06:59 06:59 06:59
Intake Total 240 / 240
Balance 240 / 240
SaO2 93
Nasal Cannula flow liters per 2
minute
Labs/Micro/Reports
Lab Data
06/16/24 07:13
06/16/24 07:13
Microbiology
06/15/24 11:38 Sputum Respiratory Culture - Preliminary
Usual Respiratory Felicia
06/15/24 11:38 Sputum Gram Stain - Preliminary
06/15/24 12:17 Nasal Swab Respiratory Syncytial Virus Ag - Final
Negative for Respiratory Syncytial Virus.
A false negative result may be obtained with a specimen
collected early in the acute phase. If symptoms persist, a
new specimen should be tested.
06/15/24 08:40 Nasal Swab Influenza Types A & B (ARNAUD) - Final
Negative for Influenza A & B, NAAT
Negative results must be combined with clinical observations
and patient history.
Nucleic Acid Amplification test (NAAT)performed on the
[employer] platform.
[2024-06-16] MEDS: LOVENOX 40 MG SC (18:42)
[2024-06-16] MEDS: OCEAN, SALINE MIST NASAL (19:27)
[2024-06-17] VITALS (8 sets, daily range): BP systolic 136–164; BP diastolic 71–97; PULSE 95; O2SAT 96
[2024-06-17] MEDS: TYLENOL 650 MG PO ×5 (00:28→23:04)
[2024-06-17] MEDS: MAXIPIME 1000 MG IV ×5 (00:29→23:05)
[2024-06-17] MEDS: STERILE WATER FOR INJECTION 10 ML IV ×5 (00:29→23:05)
--- NOTE | 2024-06-17 06:16 | W.PN.HOSP.TC ---
Addendum entered and electronically signed by Celine Loera MD 06/17/24 15:45:
I saw and evaluated the patient independently. I reviewed the resident�s note and agree with findings and plan as documented by Dr. Lynn.
GENERAL: well developed, well nourished, female in no apparent distress
HEENT: NC/AT
HEART: regular rate and rhythm, +S1, +S2
LUNGS: clear to auscultation bilaterally
ABDOM: soft, nontender, nondistended, + bowel sounds
EXT: no cyanosis, clubbing, or edema
NEUROLOGIC: grossly intact
Acute hypoxic respiratory failure, possibly secondary to infectious bronchiolitis - Requiring supplemental Oxygen 2L NC w/o hx of oxygen use at home--now on room air-- c/w mucinex, antitussives, duonebs/pulmicort w/ albuterol nebs prn--holding
steroids
Possible Sepsis, secondary to infectious bronchiolitis - On admission, tachycardic, leukocytosis, CXR showing findings suspicious for acute on chronic bibasilar infectious/inflammatory bronchiolitis. Procalcitonin negative. COVID/RSV/Flu negative---
MRSA and Blood Cx negative-- On cefepime. ID Following--return to inhaled tobramycin at d/c
Hypercalcemia - Elevated since admission, iPTH WNL--will need further outpt w/u--consider renal or endo consults as outpt--? due to HCTZ
Thrombocytosis - reactive vs. hemoconcentration. Will continue to monitor.
COPD/History of Bronchiectasis w/ pseudomonas colonization- mucolytics, antitussives, inhalers/nebs as above-- Pulm Following.
Essential Hypertension - pressures elevated in hospital; will restart home HCTZ, hold for SBP <100mHg
DVT Proph - SC Lovenox
Code Status - Full Code
hopeful d/c tomorrow
Original Note:
Today's Communication/Plan
-
Pending blood/sputum cx. Continue to wean oxygen as tolerated. Holding prednisone for now.
Assessment / Plan
Assessment / Plan
84 year old female
#Acute hypoxic respiratory failure, possibly secondary to infectious bronchiolitis - Requiring supplemental Oxygen 2L NC w/o hx of oxygen use at home.
- c/w mucinex, antitussives, duonebs/pulmicort w/ albuterol nebs prn.
- Holding steroids for now as patient reports sx of difficulty sleeping, agitation, appetite loss while taking high dose steroids.
- Will monitor symptoms & wean Oxygen as tolerated for saturations >88%
#Possible Sepsis, secondary to infectious bronchiolitis - On admission, tachycardic, leukocytosis, CXR showing findings suspicious for acute on chronic bibasilar infectious/inflammatory bronchiolitis. Procalcitonin negative. COVID/RSV/Flu negative.
- MRSA and Blood Cx pending. On cefepime. ID Following.
#Hypercalcemia - Elevated since admission, will check a PTH level and monitor.
#Thrombocytosis - reactive vs. hemoconcentration. Will continue to monitor.
#COPD
#History of Bronchiectasis w/ pseudomonas colonization
- mucolytics, antitussives, inhalers/nebs as above.
- Pulm Following.
#Hypertension - pressures elevated in hospital; will restart home HCTZ, hold for SBP <100mHg
Diet - Full
DVT Ppx - SC Lovenox
Code Status - Full Code
Anticipated Discharge: Within 24 hours
Subjective/Interval History
-
Feeling well this morning. No new fevers or chills. Shortness of breath and cough much improved.
Objective Data
-
Labs:
Laboratory Results
06/17/24
06:00
WBC Pending
Hgb Pending
Hct Pending
Plt Count Pending
Sodium Pending
Potassium Pending
Chloride Pending
Carbon Dioxide Pending
BUN Pending
Creatinine Pending
Glucose Pending
Calcium Pending
Total Bilirubin Pending
AST Pending
ALT Pending
Alkaline Phosphatase Pending
Vital Signs:
Vital Signs
Temp Pulse Resp BP Pulse Ox
97.6 F 108 26 138/73 98
06/17/24 03:00 06/17/24 03:00 06/17/24 03:00 06/17/24 03:00 06/17/24 03:00
I&O
06/15/24 06/16/24 06/17/24
06:59 06:59 06:59
Intake Total 240 / 240 480 / 480
Balance 240 / 240 480 / 480
Review of Systems
-
History Source: Patient
All other systems: Reviewed and negative
Constitutional: Reports No Symptoms
EENT: Reports No Symptoms Reported
Respiratory: Reports Trouble Breathing; Denies Cough, Wheezing or Pleurisy
Cardiac: Reports No Symptoms
Abdomen/GI: Reports No Symptoms
Genitourinary: Reports No Symptoms
Musculoskeletal: Reports No Symptoms
Neuro: Reports No Symptoms
Physical Exam
-
General: Well Developed, Well Nourished, No Apparent Distress and Comfortable
HEENT: Normocephalic, Atraumatic, Moist Mucous Membranes, Anicteric, [place] Conjunctivae, PERRLA, Nose Appears Normal, Ears Appear Normal and Oxygen
Respiratory: Clear to Auscultation and Non Labored Respirations; Negative Wheezes, Rales or Rhonchi
Cardiac: Regular Rhythm and S1/S2
GI: Soft, Nontender, Nondistended and Normal Bowel Sounds
Genito-urinary: Deferred by me
Musculoskeletal: No Clubbing, No Cyanosis and No Edema
Neuro: AO x 3 and Nonfocal/Grossly Intact
[2024-06-17 07:27] LABS: % Basophils 0.3 % (0-2); % Eosinophils 0.1 % (0-6); % Immature Granulocytes 1.7 % (0-0.5); % Monocytes 6.4 % (1.7-9.3); % Neutrophils 80.5 % (42.2-75.2); Absolute Basophils 0.1 10^3/uL (0-0.2); Absolute Immature Granulocytes 0.4 10^3/uL (0-0.05); Absolute Lymphocytes 2.4 10^3/uL (1.2-3.4); Absolute Monocytes 1.4 10^3/uL (0.1-0.6); Absolute Neutrophils 17.4 10^3/uL (1.4-6.5); Hematocrit 45.9 % (37.0-47.0); Hemoglobin 15.6 g/dL (12.0-16.0); Mean Corpuscular Hgb 29.7 pg (27.0-31.0); Mean Corpuscular Volume 87.3 fL (81.0-99.0); Mean Platelet Volume 8.9 fL (7.4-10.4); Nucleated Red Blood Cells % 0 %; Platelet Count 592 10^3/uL (130-400); Red Blood Cell Count 5.26 10^6/uL (4.20-5.40); Red Cell Dist. Width 14.2 % (11.5-14.5); White Blood Cell Count 21.6 10^3/uL (4.8-10.8)
[2024-06-17] MEDS: DUONEB INH (07:37)
[2024-06-17] MEDS: PULMICORT INH (07:37)
[2024-06-17 07:45] LABS: ALT (SGPT) 16 U/L (0-35); AST (SGOT) 24 U/L (14-36); Albumin 4.4 g/dl (3.5-5.0); Alkaline Phosphatase 79 U/L (38-126); Blood Urea Nitrogen 18 mg/dl (7-17); Calcium 11.3 mg/dl (8.4-10.2); Carbon Dioxide 25 mmol/L (22-30); Chloride 105 mmol/L (98-107); Estimated Creatinine Clearance 39 ml/min; Glucose 96 mg/dl (70-99); Sodium 141 mmol/L (135-145); Total Protein 7.9 g/dl (6.3-8.2); eGFR > 60.00
[2024-06-17 07:52] LABS: Potassium 4.4 mmol/L (3.5-5.1)
[2024-06-17] MEDS: OCEAN, SALINE MIST 2 SPRAYS NASAL ×3 (08:48→21:07)
[2024-06-17] MEDS: ORETIC 25 MG PO (08:48)
[2024-06-17 09:08] LABS: Intact PTH 49.1 pg/ml (13.6-85.8)
[2024-06-17 09:12] LABS: Calcium 11.9 mg/dl (8.4-10.2)
[2024-06-17] MEDS: DUONEB 3 ML INH ×3 (11:11→20:52)
--- NOTE | 2024-06-17 12:52 | W.PN.ID1 ---
Date of Service
Date of Service: June 17, 2024
Today's Communication
At time of discharge, dc cefepime and resume her outpatient Tobramycin Inh.
Assessment / Plan
# Bronchiectasis exacerbation resolving
# Acute on chronic Bronchitis; procal <0.25.
# Acute hypoxic insufficiency resolved
# Leukocytosis -recent steroid taper
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
- Patient new to our health system.
- Review of [facility] and [facility] labs: Sputums + Pseudomonas aeruginosa 10/22/23 (pansensitive), 11/16/23 (pansensitive), 12/03/23 (intermediate resistant to levofloxacin).
- sputum cx: GNR ( suspect Pseudomonas as previous)
- Awaiting records from 07/2023 [facility].
- On cefepime (d3)
- At time of discharge, dc cefepime and resume her outpatient Tobramycin Inh.
Chief Complaint
-: Other (SOB)
Subjective / Review of Systems
Now off oxygen.
Breathing is now back to baseline.
Had dizziness after prednisone dose yesterday.
Vital Signs / Physical Exam
Vital Signs
Vital Signs
Temp Pulse Resp BP Pulse Ox
97.5 F 113 16 144/71 95
06/17/24 11:10 06/17/24 11:14 06/17/24 11:14 06/17/24 11:10 06/17/24 11:14
Physical Exam
Constitutional: No Acute Distress
Pulmonary: Non Labored; Negative Wheezes or Rales
Gastrointestinal: Soft, Non Tender and Non Distended
Extremities: Negative Edema
Neurological: AO x 3
Objective Data
Lab Data
Lab Results
06/17/24 06:44
06/17/24 06:44
Estimated Creat Clear 39 ml/min 06/17/24 06:44
Total Bilirubin 1.0 mg/dl (0.2-1.3) 06/17/24 06:44
AST 24 U/L (14-36) 06/17/24 06:44
ALT 16 U/L (0-35) 06/17/24 06:44
Alkaline Phosphatase 79 U/L (38-126) 06/17/24 06:44
Most recent labs reviewed.
Micro Results:
06/15/24 11:38 Respiratory Culture - Preliminary
Sputum Gram negative bacilli
Gram Stain - Preliminary
06/15/24 16:18 MRSA Screen - Final
Nose No Methicillin Resistant Staphylococcus aureus isolated.
06/15/24 21:09 Blood Culture - Preliminary
Blood/Venous No Growth in 24 hours- Final report to follow
06/15/24 19:56 Blood Culture - Preliminary
Blood/Venous No Growth in 24 hours- Final report to follow
06/15/24 12:17 Respiratory Syncytial Virus Ag - Final
Nasal Swab Negative for Respiratory Syncytial Virus.
A false negative result may be obtained with a specimen
collected early in the acute phase. If symptoms persist, a
new specimen should be tested.
06/15/24 08:40 Influenza Types A & B (ARNAUD) - Final
Nasal Swab Negative for Influenza A & B, NAAT
Negative results must be combined with clinical observations
and patient history.
Nucleic Acid Amplification test (NAAT)performed on the
[employer] platform.
06/15/24 CXR: Suspect acute on chronic bibasilar infectious/inflammatory bronchiolitis.
12/03/2023 Sputum ([facility])
Lower Respiratory Culture Final report Abnormal
Result 1 Pseudomonas aeruginosaModerate growth Abnormal
Result 2 Routine respiratory floraModerate growth
Antimicrobial Susceptibility S = Susceptible; I = Intermediate; R = Resistant P = Positive; N = Negative
MICS are expressed in micrograms per mL
Antibiotic RSLT#1 RSLT#2 RSLT#3 RSLT#4
Amikacin S
Cefepime S
Ceftazidime S
Gentamicin S
Imipenem S
Levofloxacin I
Meropenem S
Piperacillin S
Ticarcillin S
Tobramycin S
--- NOTE | 2024-06-17 14:24 | W.PN.PUL3 ---
Today's Communication / Plan
-
Continue nebulizers Pulmicort/DuoNebs while in the hospital
Continue secretion clearance interventions
Continue cefepime and then transition to tobramycin upon discharge
Wait for final identification of Pseudomonas
Blood cultures negative
Home ox oxygen supplementation has been weaned off
Hopefully discharge in 24 hours
Patient will continue to follow-up with her abalone processor after discharge.
No additional recommendation from the pulmonary perspective, sign off
Assessment
-
Assessment: 84-year-old female non-smoker with a reported past medical history of bronchiectasis/chronic bronchitis who presents with shortness of breath and worsening cough. She says that she woke up with difficulty breathing and this worsened
with activity. Also having shaking chills with worsening sputum production. She reports that she was recently started on tobramycin nebulizers for history of Pseudomonas on sputum culture. She usually goes to [facility]. On arrival
here to the ER she was saturating 92% on RA, she was afebrile to 98.8 �F, pulse rate 104, breathing at 16 breaths/min, and BP 150/84. Of note, she does not use home oxygen. Labs showed WBC 15.2, Hb 14.4, platelets 502, calcium 10.8, and COVID-19
antigen negative. Flu A/B swab is negative and sputum culture collected. RSV swab also negative. CXR shows a suspected acute on chronic bibasilar infectious/inflammatory bronchiolitis. Cannot rule out underlying ILD. She was given Zosyn and
DuoNebs in the ER and admitted to telemetry under the hospitalist. Pulmonary service now consulted for additional management/recommendations.
Chronic conditions AUDIT OFFICER: Reported history of bronchiectasis/COPD, history of bronchiolitis/chronic bronchitis, history of chronic prednisone use, history of Pseudomonas aeruginosa requiring chronic tobramycin nebs
Impression:
#Acute respiratory failure with hypoxia not on supplemental oxygen
#COPD exacerbation
#History of bronchiectasis/COPD on Anoro/Arnuity and history of chronic prednisone use (prescribed 20mg every other day for several months, stopped yesterday)
#SOB with worsening cough and sputum production which shaking chills likely due to sepsis from CAP
#History of Pseudomonas on sputum culture (per patient) on tobramycin nebs in 2 weeks cycles for a few months
#Leukocytosis, possibly related to recent prednisone usage prior to arrival
#Thrombocytosis likely reactive
#Hypercalcemia
Plan:
- Continue with broad-spectrum antibiotics (cefepime s/p zosyn) as CXR showed bibasilar interstitial/airspace opacities with suspected pneumonia vs inflammatory bronchiolitis
- Takes Anoro and Arnuity at home --> given her SOB, continue DuoNebs and Pulmicort for now; can resume her inhalers as she gets closer to discharge; continue prn nebulized bronchodilators for breakthrough symptoms
Clinically feels better 06/17/2024.
- Prednisone DC- 06/16/2024 due to adverse effects.
- Anti-tussants prn
- Airway clearance is ricketts--> continue mucinex and acapella; if still having SOB with cough, then will start 3% with vest
- Incentive spirometer encouraged q1hr while awake
- Follow up respiratory Wr-dyhg-nwppcose bacilli-identification pending.
- Covid/flu negative.
- afebrile/leukocytosis improved, procalcitonin negative.
-Blood culture negative.
- Defer ABX to ID, cultures from outpx noted, mostly pansensitive pseudomonas- On cefepime, to resume tobramycin nebulized upon discharge.
-No available CAT scans to review in our system.
-her lung doctor is Dr. Fletcher at [facility].
- She currently is on room air and breathing comfortably, however if dyspnea on exertion does not improve then would recommend CT chest to evaluate the lung parenchyma.
- Maintain SpO2 88-95% oxygen supplementation has been weaned off 06/17/2024.
-
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 Unfortunately we do not carry this here. I will order [place] Ingomar for now
-Wt loss- pt states that she has lost 20-30lb since November- lack of appetite. ?pulmonary Cachexia
consulted PT?OT,
muscle mass loss can also be contributing to her symptoms.
- DVT ppx: LMWH
Following discharge she is recommended to continue following with her Thread Dresser at [facility], Dr. Chandan Fletcher.
Pulmonary team will sign off.
Hopefully discharge in 24 hours
Data:
CXR 06/15/2024: Suspect acute on chronic bibasilar infectious/inflammatory bronchiolitis. Cannot rule out component of underlying chronic interstitial lung disease.
Subjective Data
-
Date of Service:
Date of Service: June 17, 2024
Chief Complaint: Pulmonary Follow Up (Hypoxemic respiratory failure/COPD exacerbation)
Objective Data
Data Reviewed
Vital Signs / I&O / Oxygen:
Vital Signs
Temp Pulse Resp BP Pulse Ox
97.5 F 113 16 144/71 95
06/17/24 11:10 06/17/24 11:14 06/17/24 11:14 06/17/24 11:10 06/17/24 11:14
Intake and Output
06/16/24 06/17/24 06/18/24
06:59 06:59 06:59
Intake Total 240 / 240 480 / 480
Balance 240 / 240 480 / 480
SaO2 95
Nasal Cannula flow liters per 2
minute
Labs/Micro/Reports
Lab Data
06/17/24 06:44
06/17/24 06:44
Microbiology
06/15/24 11:38 Sputum Respiratory Culture - Preliminary
Gram negative bacilli
06/15/24 11:38 Sputum Gram Stain - Preliminary
06/15/24 16:18 Nose MRSA Screen - Final
No Methicillin Resistant Staphylococcus aureus isolated.
06/15/24 21:09 Blood/Venous Blood Culture - Preliminary
No Growth in 24 hours- Final report to follow
06/15/24 19:56 Blood/Venous Blood Culture - Preliminary
No Growth in 24 hours- Final report to follow
06/15/24 12:17 Nasal Swab Respiratory Syncytial Virus Ag - Final
Negative for Respiratory Syncytial Virus.
A false negative result may be obtained with a specimen
collected early in the acute phase. If symptoms persist, a
new specimen should be tested.
06/15/24 08:40 Nasal Swab Influenza Types A & B (ARNAUD) - Final
Negative for Influenza A & B, NAAT
Negative results must be combined with clinical observations
and patient history.
Nucleic Acid Amplification test (NAAT)performed on the
[employer] platform.
--- NOTE | 2024-06-17 15:25 | CM ---
Addendum entered by Lauren Ron 06/17/24 15:28:
CM called to patient johnathan and will send referral to [facility] requested by patient daughter Nella and CM will send referral and update physician. IMM given to patient and daughter indicated will review form with mother. Patient daughter to come to
see mother and will transport tomorrow. CM will continue to follow for discharge planning needs.
Plan; home with referral to [facility]
Original Note:
Patient seen at bedside with physicians. Patient stated that she would like CM to call family to ask about choice for VN. Plan is for patient to return to [facility]. CM will continue to follow for discharge planning needs.
Plan; home with VN; pending family choice.
[2024-06-17] MEDS: LOVENOX 40 MG SC (17:32)
[2024-06-17] MEDS: OCEAN, SALINE MIST NASAL (17:49)
[2024-06-17] MEDS: PULMICORT 0.5 MG INH (20:52)
[2024-06-18 03:38] VITALS: BP 140/80
[2024-06-18] MEDS: MAXIPIME 1000 MG IV ×2 (05:01→13:18)
[2024-06-18] MEDS: STERILE WATER FOR INJECTION 10 ML IV ×2 (05:01→13:19)
[2024-06-18] MEDS: TYLENOL 650 MG PO (06:00)
[2024-06-18] MEDS: PULMICORT 0.5 MG INH (07:09)
[2024-06-18] MEDS: DUONEB 3 ML INH ×2 (07:09→11:07)
[2024-06-18 07:15] VITALS: BP 141/80
[2024-06-18 07:32] LABS: % Basophils 0.5 % (0-2); % Eosinophils 0.4 % (0-6); % Immature Granulocytes 2.1 % (0-0.5); % Lymphocytes 11.4 % (20.5-51.1); % Monocytes 6.6 % (1.7-9.3); Absolute Basophils 0.1 10^3/uL (0-0.2); Absolute Eosinophils 0.1 10^3/uL (0-0.7); Absolute Immature Granulocytes 0.4 10^3/uL (0-0.05); Absolute Lymphocytes 2.1 10^3/uL (1.2-3.4); Absolute Monocytes 1.2 10^3/uL (0.1-0.6); Absolute Neutrophils 14.3 10^3/uL (1.4-6.5); Hematocrit 45.3 % (37.0-47.0); Hemoglobin 14.9 g/dL (12.0-16.0); Mean Corp Hgb Conc. 32.9 g/dL (33.0-37.0); Mean Corpuscular Hgb 28.7 pg (27.0-31.0); Mean Corpuscular Volume 87.3 fL (81.0-99.0); Mean Platelet Volume 8.6 fL (7.4-10.4); Nucleated Red Blood Cells % 0 %; Platelet Count 539 10^3/uL (130-400); Red Blood Cell Count 5.19 10^6/uL (4.20-5.40); White Blood Cell Count 18.1 10^3/uL (4.8-10.8)
[2024-06-18 07:53] LABS: ALT (SGPT) 17 U/L (0-35); AST (SGOT) 24 U/L (14-36); Albumin 3.8 g/dl (3.5-5.0); Alkaline Phosphatase 74 U/L (38-126); Blood Urea Nitrogen 16 mg/dl (7-17); Calcium 10.5 mg/dl (8.4-10.2); Carbon Dioxide 24 mmol/L (22-30); Chloride 106 mmol/L (98-107); Estimated Creatinine Clearance 39 ml/min; Glucose 101 mg/dl (70-99); Potassium 4.2 mmol/L (3.5-5.1); Sodium 140 mmol/L (135-145); Total Bilirubin 0.6 mg/dl (0.2-1.3); eGFR > 60.00
--- NOTE | 2024-06-18 08:15 | W.PN.HOSP.TC ---
Addendum entered and electronically signed by Celine Loera MD 06/18/24 15:54:
I saw and evaluated the patient independently. I reviewed the resident�s note and agree with findings and plan as documented by Dr. Lynn.
GENERAL: well developed, well nourished, female in no apparent distress
HEENT: NC/AT
HEART: regular rate and rhythm, +S1, +S2
LUNGS: clear to auscultation bilaterally
ABDOM: soft, nontender, nondistended, + bowel sounds
EXT: no cyanosis, clubbing, or edema
NEUROLOGIC: grossly intact
Acute hypoxic respiratory failure, possibly secondary to infectious bronchiolitis - Requiring supplemental Oxygen 2L NC w/o hx of oxygen use at home--now on room air-- c/w mucinex, antitussives, duonebs/pulmicort w/ albuterol nebs prn
Possible Sepsis, secondary to infectious bronchiolitis - On admission, tachycardic, leukocytosis, CXR showing findings suspicious for acute on chronic bibasilar infectious/inflammatory bronchiolitis. Procalcitonin negative. COVID/RSV/Flu negative---
MRSA and Blood Cx negative-- On cefepime. ID Following--return to inhaled tobramycin at d/c
Hypercalcemia - Elevated since admission, iPTH WNL--will need further outpt w/u--consider renal or endo consults as outpt--? due to HCTZ
Thrombocytosis - reactive vs. hemoconcentration. Will continue to monitor.
COPD/History of Bronchiectasis w/ pseudomonas colonization- mucolytics, antitussives, inhalers/nebs as above-- Pulm Following.
Essential Hypertension - pressures elevated in hospital; will restart home HCTZ, hold for SBP <100mHg
DVT Proph - SC Lovenox
Code Status - Full Code
OK for d/c
Addendum entered and electronically signed by Watson Lynn MD, Resident 06/18/24 11:48:
Due to weight loss of > 20% in 1 year, < 75% estimated needs > 1 month and observed muscle and fat wasting, the patient meets AND/ASPEN criteria for severe protein calorie malnutrition of chronic illness.
Original Note:
Today's Communication/Plan
-
Probably discharge today.
Assessment / Plan
Assessment / Plan
84 year old female
#Acute hypoxic respiratory failure, possibly secondary to infectious bronchiolitis - Requiring supplemental Oxygen 2L NC w/o hx of oxygen use at home.
- c/w mucinex, antitussives, duonebs/pulmicort w/ albuterol nebs prn.
- Holding steroids for now as patient reports sx of difficulty sleeping, agitation, appetite loss while taking high dose steroids.
- Off supplemental O2, saturations >94%
- OK to d/c home on existing Tobramycin nebulizer. Has pulmonology and PCP followup in june.
#Possible Sepsis, secondary to infectious bronchiolitis - On admission, tachycardic, leukocytosis, CXR showing findings suspicious for acute on chronic bibasilar infectious/inflammatory bronchiolitis. Procalcitonin negative. COVID/RSV/Flu negative.
- MRSA negative, Blood cultures showing NG x48hrs. On cefepime. ID Following. Will likely not need abx on discharge.
#Hypercalcemia - Elevated since admission, PTH unremarkable. Possible effect of HCTZ. Daughter and patient are aware.
#Thrombocytosis - reactive vs. hemoconcentration. Will continue to monitor.
#COPD
#History of Bronchiectasis w/ pseudomonas colonization
- mucolytics, antitussives, inhalers/nebs as above.
- Pulm Following.
#Hypertension - pressures elevated in hospital; will restart home HCTZ, hold for SBP <100mHg
Diet - Full
DVT Ppx - SC Lovenox
Code Status - Full Code
Anticipated Discharge: Today
Subjective/Interval History
-
Feeling well, no acute complaints. no Events overnight. off supplemental O2, saturations >94%
Objective Data
-
Labs:
Laboratory Results
06/18/24
07:15
WBC 18.1 H
Hgb 14.9
Hct 45.3
Plt Count 539 H
Sodium 140
Potassium 4.2
Chloride 106
Carbon Dioxide 24
BUN 16
Creatinine 0.7
Glucose 101 H
Calcium 10.5 H
Total Bilirubin 0.6
AST 24
ALT 17
Alkaline Phosphatase 74
Vital Signs:
Vital Signs
Temp Pulse Resp BP Pulse Ox
98.1 F 96 16 140/80 97
06/18/24 03:38 06/18/24 07:12 06/18/24 07:12 06/18/24 03:38 06/18/24 03:38
I&O
06/17/24 06/18/24 06/19/24
06:59 06:59 06:59
Intake Total 480 / 480 240 / 240
Balance 480 / 480 240 / 240
Review of Systems
-
History Source: Patient
All other systems: Reviewed and negative
Constitutional: Reports No Symptoms
EENT: Reports No Symptoms Reported
Respiratory: Reports No Symptoms
Cardiac: Reports No Symptoms
Abdomen/GI: Reports No Symptoms
Genitourinary: Reports No Symptoms
Musculoskeletal: Reports No Symptoms
Neuro: Reports No Symptoms
Physical Exam
-
General: Well Developed, Well Nourished, No Apparent Distress and Comfortable
HEENT: Normocephalic, Atraumatic, Moist Mucous Membranes, Anicteric, [place] Conjunctivae, PERRLA, Nose Appears Normal and Ears Appear Normal
Respiratory: Crackles (minimal inspiratory crackles in the RUL, unchanged from prior) and Non Labored Respirations; Negative Wheezes or Rhonchi
Cardiac: Regular Rhythm and S1/S2; Negative Murmur or Rub
GI: Soft, Nontender, Nondistended and Normal Bowel Sounds
Musculoskeletal: No Clubbing, No Cyanosis and No Edema
Neuro: AO x 3
--- NOTE | 2024-06-18 08:27 | PN.CDI ---
CDI
- -
CDI:
Physician Documentation Request
Admit Date: 06/15/24 12:23
Dear Doctor Leah,
Clinical Indicators:
06/16 note/assessment: CBW: 93 lbs 5 oz BMI 18.8 normal range, compared to UBW of 122 lbs in December pt with a (24%) in < 1 year significant.
-Subcutaneous Loss Rib cage: Moderate Orbital: Severe Muscle Loss Clavicle: Moderate Temporal Moderate
-'With weight loss of > 20% in 1 year, < 75% estimated needs > 1 month and observed muscle and fat wasting pt
meets AND/ASPEN criteria for severe protein calorie malnutrition of chronic illness.'
Based on the above information and your assessment, which of the following most accurately represents the patient's nutritional status?
Severe Protein Calorie Malnutrition
Other (please specify)
[place] Criteria ([facility]ist 2017)
2 or more criteria must be present for either
non severe or severe malnutrition
Note that the criteria differs related to the
presence of an acute or chronic illness
Acute Illness Chronic Illness
Energy Intake Non Severe: <75% for >7 days Non Severe: <75% for >1 month
Severe: <50% for >5 days Severe: <75% for >1 month
Weight Loss Non Severe: 1-2% over 1 week Non Severe: 5% over 1 month
5% over 1 month 7.5% over 3 months
7.5% over 3 months 10% over 6 months
1 year N/A 20% over 1 year
Severe: >2% over 1 week Severe: >5% over 1 month
>5% over 1 month >7.5% over 3 months
>7.5% over 3 months >10% over 6 months
1 year N/A >20% over 1 year
Body Fat Non Severe: Mild Decrease Non Severe: Mild Loss
Severe: Moderate Decrease Severe: Severe Loss
Muscle Mass Non Severe: Mild Decrease Non Severe: Mild Loss
Severe: Moderate Decrease Severe: Severe Loss
Fluid Accumulation Non Severe: Mild Accumulation Non Severe: Mild Accumulation
Severe: Moderate to severe Severe: Moderate to severe
accumulation accumulation
Reduced Administrative Associate Strength Non Severe: N/A Non Severe: N/A
Severe: Measurably reduced Severe: Measurably reduced
Additional criteria that can be used to Determine if Mild or Moderate Malnutrition (Merck Manual 2018)
Mild Moderate Severe
Albumin gm/dl <3.0 gm/dl <2.5 gm/dl <2.0 gm/dl
Pre Albumin mg/dl <15 gm/dl <10 mg/dl <5.0 mg/dl
BMI <18.5 <17 <16
Use of terms such as suspected, likely, concern for, or probable (associated with a specific diagnosis that is being evaluated, monitored, or treated as if it exists) are acceptable and can be coded in the inpatient setting, when documented at the
time of discharge.
Thank you,
Porsche Gomez RN BSN
CDI Specialist
available via tiger text
Please use your independent medical judgment in providing your response.
[2024-06-18] MEDS: ORETIC 25 MG PO (08:56)
[2024-06-18] MEDS: OCEAN, SALINE MIST 2 SPRAYS NASAL ×2 (08:57→13:27)
--- NOTE | 2024-06-18 10:25 | W.PN.ID1 ---
Date of Service
Date of Service: June 18, 2024
Today's Communication
See below.
Assessment / Plan
# Bronchiectasis exacerbation improving
# Acute on chronic Bronchitis; procal <0.25.
# Acute hypoxic insufficiency resolved
# Leukocytosis -recent steroid
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
- sputum cx: Pseudomonas RESISTANT to cipro, intermediate to tobramycin.
-IF DC home today, can dc cefepime (d4)
-Home tobramycin INH is likely no longer effective due to development of partial resistance.
- Follow-up with her formula weigher.
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
# Hx hypercalcemia
Chief Complaint
-: Other (SOB)
Subjective / Review of Systems
No complaints today.
Vital Signs / Physical Exam
Vital Signs
Vital Signs
Temp Pulse Resp BP Pulse Ox
97.4 F 104 18 141/80 94
06/18/24 07:15 06/18/24 07:15 06/18/24 07:15 06/18/24 07:15 06/18/24 07:15
Physical Exam
Constitutional: No Acute Distress
Pulmonary: Symmetric; Negative Wheezes or Rales
Gastrointestinal: Soft, Non Tender, Non Distended and Normal Bowel Sounds
Extremities: Negative Edema
Neurological: AO x 3
Objective Data
Lab Data
Lab Results
06/18/24 07:15
06/18/24 07:15
Estimated Creat Clear 39 ml/min 06/18/24 07:15
Total Bilirubin 0.6 mg/dl (0.2-1.3) 06/18/24 07:15
AST 24 U/L (14-36) 06/18/24 07:15
ALT 17 U/L (0-35) 06/18/24 07:15
Alkaline Phosphatase 74 U/L (38-126) 06/18/24 07:15
Most recent labs reviewed.
Micro Results:
06/15/24 11:38 Respiratory Culture - Preliminary
Sputum Pseudomonas
Gram Stain - Preliminary
06/15/24 21:09 Blood Culture - Preliminary
Blood/Venous No Growth in 48 hours- Final report to follow
06/15/24 19:56 Blood Culture - Preliminary
Blood/Venous No Growth in 48 hours- Final report to follow
06/15/24 16:18 MRSA Screen - Final
Nose No Methicillin Resistant Staphylococcus aureus isolated.
06/15/24 12:17 Respiratory Syncytial Virus Ag - Final
Nasal Swab Negative for Respiratory Syncytial Virus.
A false negative result may be obtained with a specimen
collected early in the acute phase. If symptoms persist, a
new specimen should be tested.
06/15/24 08:40 Influenza Types A & B (ARNAUD) - Final
Nasal Swab Negative for Influenza A & B, NAAT
Negative results must be combined with clinical observations
and patient history.
Nucleic Acid Amplification test (NAAT)performed on the
[employer] platform.
06/15/24 CXR: Suspect acute on chronic bibasilar infectious/inflammatory bronchiolitis.
PEC #: [id number] RAHUL: 06/15/24-1137 STATUS: COMP REQ #: [id number]
RECD: 06/15/24-[address]: Dontae Hollins DO
SOURCE: SPUTUM ENTR: 06/15/24-[address]: Tana REESE,Serge Cramer
SPDESC:
ORDERED: Resp Culture
QUERIES: Date Specimen was Collected 06/15/24
Time Specimen was Collected 1112
Procedure Result Verified
Respiratory Culture Final 06/18/24-112
Moderate Pseudomonas aeruginosa
Moderate Usual Respiratory Felicia
Organism 1 Pseudomonas aeruginosa
1. Pseudomonas aeruginosa
M.I.C. RX
--------- ---
Aztreonam <=4 S
Cefepime 8 S
Ceftazidime <=1 S
Ciprofloxacin 2 R
Meropenem <=1 S
Piperacillin/Tazobactam <=8 S
Tobramycin 8 I
[2024-06-18 11:55] VITALS: BP 151/77
--- NOTE | 2024-06-18 13:36 | W.DCSUMMARY ---
Addendum entered and electronically signed by Celine Loera MD 06/18/24 16:02:
Read, reviewed, and agree. See same day progress note for additional details. Time spent coordinating care, DC planning, review of DC plan of care with resident, transition of care, review of records in EMR, med rec, consults, notes, d/w
consultants, nursing, family, and CM = 35 minutes
In regards to hypercalcemia, will need follow up with PCP and/or endocrine. Calcium 10.5 on day of discharge.
Severe protein calorie malnutrition also valid diagnosis at discharge.
Original Note:
Discharge Summary
Discharge Data
Date of Admission: 06/15/24
Date of Discharge: 06/18/24
Total time spent discharging patient (in min): >30min
-
Pending Results: No
Hospital Course
Discharging Physician : Dr. Watson Lynn, Dr. Celine Loera
Disposition : Home w/ VN
Primary care physician : Serge Fajardo
Principal Discharge diagnosis : Acute hypoxic respiratory failure, possibly secondary to infectious bronchiolitis, Possible Sepsis, secondary to infectious bronchiolitis, Hypercalcemia, Thrombocytosis,
Chronic Discharge diagnosis : COPD, Hypertension
Hospital Course :
Reema Parekh was brought to [facility] for complaints of increasing shortness of breath. She has a history of chronic bronchiectasis with colonization of pseudomonas, for which she follows Biofuels Production Manager Dr. Fletcher at [facility]. She was hypoxic
and required 2L NC.
She was initially given steroids for management of acute exacerbation of COPD, however after talking to the patient who reports agitation and trouble sleeping on steroids, they were discontinued. Blood Cultures were drawn for possible sepsis, which
showed no growth after 48 hours. Sputum cultures were done which demonstrated usual respiratory jacquelin. She was managed with IV cefepime until discharge, at which time she was advised to continue her tobramycin inhaler per her outpatient
steam pipe fitter.
Over the course of her hospital stay she was weaned off of supplemental oxygen and onto room air with saturations >88%. There was an incidental finding of hypercalcemia which was suspected to be caused by the patient's hydrochlorothiazide
medication. Serum PTH was done which was within normal limits. The patient's daughter was notified and recommendations were given to follow up with primary care doc vs. interior design instructor as outpatient.
A final sensitivity report came back for the sputum culture which showed bacteria with intermediate resistance to tobramycin, which the patient was newly prescribed by her steam pipe fitter. Report put in discharge instructions and copy given to
patient to show her steam pipe fitter.
Important imaging findings :
CR Chest - 2 Views:
Suspect acute on chronic bibasilar infectious/inflammatory bronchiolitis. Cannot rule out component of underlying chronic interstitial lung disease.
Procedure findings :
None.
Discharge Plan
-
Patient Disposition: Home with Home Care
Discharge Diagnosis/Procedures: Acute Hypoxic Respiratory Failure
Acute Exacerbation of Chronic Bronchiectasis
Condition: Good
Diet: No restrictions and As tolerated
Activity: As tolerated
Driving Restrictions: As prior to admission
Bathing Restrictions: None
Other Services: VN
Activity Restrictions/Additional Instructions:
PEC #: [id number] RAHUL: 06/15/24 STATUS: COMP REQ #: [id number]
RECD: 06/15/24-[address]: Dontae Hollins DO
SOURCE: SPUTUM ENTR: 06/15/24-1112 [facility] DR: Tana REESE,Serge Cramer
SPDESC:
ORDERED: Resp Culture
QUERIES: Date Specimen was Collected 06/15/24
Time Specimen was Collected 1112
Procedure Result Verified
Respiratory Culture Final 06/18/24-1121
Moderate Pseudomonas aeruginosa
Moderate Usual Respiratory Jacquelin
Organism 1 Pseudomonas aeruginosa
1. Pseudomonas aeruginosa
M.I.C. RX
--------- ---
Aztreonam <=4 S
Cefepime 8 S
Ceftazidime <=1 S
Ciprofloxacin 2 R
Meropenem <=1 S
Piperacillin/Tazobactam <=8 S
Tobramycin 8 I
Show your steam pipe fitter the above sputum culture result. The pseudomonas is partially resistant to tobramycin rendering the tobramycin inhalation not as effective.
Referrals:
Serge Fajardo MD [Family Provider] - in less than 1 week
Prescriptions:
Continued
albuterol sulfate 2.5 mg /3 mL (0.083 %) Solution For Nebulization
2.5 mg INHALATION R Q6HPRN PRN (Reason: sob)
tobramycin in 0.225 % NaCl 300 mg/5 mL solution for nebulization
5 ml INHALATION UD Qty: 0 0RF
Rx Instructions:
use for 14 days then off for 14 day then repeat
aspirin 81 mg Tablet,Delayed Release (Dr/Ec)
81 mg PO DAILY Qty: 0 0RF
pantoprazole [Protonix] 40 mg Tablet,Delayed Release (Dr/Ec)
40 mg PO DAILY Qty: 0 0RF
budesonide 0.5 mg/2 mL Suspension For Nebulization
0.5 mg INHALATION R BID Qty: 0 0RF
hydrochlorothiazide 25 mg Tablet
25 mg PO DAILY Qty: 0 0RF
fenofibrate nanocrystallized [Tricor] 145 mg Tablet
145 mg PO DAILY Qty: 0 0RF
calcium carbonate-vitamin D3 [Calcium 500 + D] 500 mg-10 mcg (400 unit) Tablet
1 tab PO DAILY Qty: 0 0RF
Anoro Ellipta 62.5-25 mcg/actuation Blister With Device
1 inh INHALATION R DAILY Qty: 0 0RF
Arnuity Ellipta 200 mcg/actuation Blister With Device
1 inh INHALATION R DAILY Qty: 0 0RF
Discharge Orders:
Discharge Patient (As Directed); Ordered 06/18/24
Ordered By: Watson Lynn
Discharge Date and Time
Print Language: INDIAN
[2024-06-18 14:34] VITALS: BP 139/75
--- NOTE | 2024-06-18 16:01 | CM ---
Addendum entered by Lauren Ron 06/18/24 16:19:
daughter's address [address] [place] [address], [id number] [address] [phone]
Addendum entered by Lauren Ron 06/18/24 16:17:
please tay at; [phone]/
Original Note:
Patient for discharge home. Patient asking for referral to [facility] and [facility] sent referral via all scripts/also faxed clinical information via fax to . [facility] updated by patient nurse that patient wanted to go to daughter's home. CM faxed
updated info to [facility].
Plan; [facility] vn
== END 2024-06-18 16:19 | disposition home health service (06) | DRG 871 ==
LOC: 4 EAST ACU 12:23
PROVIDERS: Emergency Medicine; ADMITTING PHYSICIAN Internal Medicine; ATTENDING PHYSICIAN Internal Medicine; CONSULT PHYSICIAN Internal Medicine Critical Care Medicine; CONSULT PHYSICIAN Internal Medicine Infectious Disease; EMERGENCY PHYSICIAN Emergency Medicine; FAMILY PHYSICIAN Internal Medicine
DX: A41.9 Sepsis, unspecified organism (principal); E43 Unspecified severe protein-calorie malnutrition; J96.01 Acute respiratory failure with hypoxia; J44.1 Chronic obstructive pulmonary disease with (acute) exacerbation; J44.0 Chronic obstructive pulmonary disease with (acute) lower respiratory infection; J47.1 Bronchiectasis with (acute) exacerbation; J47.0 Bronchiectasis with acute lower respiratory infection; Z68.1 Body mass index [BMI] 19.9 or less, adult; E83.52 Hypercalcemia; Z22.39 Carrier of other specified bacterial diseases; Z11.52 Encounter for screening for COVID-19; Z79.52 Long term (current) use of systemic steroids; J32.9 Chronic sinusitis, unspecified; D75.839 Thrombocytosis, unspecified; B96.5 Pseudomonas (aeruginosa) (mallei) (pseudomallei) as the cause of diseases classified elsewhere
CPT/HCPCS: 71046; 80048; 80053; 83735; 83970; 84100; 84145; 85025; 87040; 87070; 87077; 87186; 87205; 87502; 87807; 87811; 93005; 94640; 96365; 97116; 97161; 97166; 99285